=== PATIENT | female | born 1995 | race Caucasian/White ===

== ENCOUNTER 2020-03-10 19:40 | Emergency (ER) | payer SELFPAY ==
[~2020-03-10] VITALS: Ht 172.7 cm; Wt 54.4 kg
[2020-03-10 19:51] VITALS: BP 110/80
--- NOTE | 2020-03-10 19:51 | NUR ---
ED Nurse Note: PT walked in to ED for C/O pain and discomfort to her lung and feeling very tired. pt reports feeling pain when she breathe in since 2 days ago.
--- NOTE | 2020-03-10 19:59 | NUR ---
ED Nurse Note: ERMD at bedside assessing pt at this time.
--- NOTE | 2020-03-10 20:03 | NUR ---
ED Nurse Note: x ray being performed at bedside.
--- NOTE | 2020-03-10 20:05 | Emergency Room Report ---
History of Present Illness General Chief Complaint: Chest Pain Source: Patient Present Illness HPI Disclaimer: Please note that this report is being documented using [employer] technology. This can lead to erroneous entry secondary to incorrect interpretation by the dictating instrument. HPI: 25-year-old female presents for evaluation of "lung pain." Patient states she feels a discomfort in the lower ribs when taking a deep inhalation or bending and twisting motion. She denies any midsternal chest pain or pain radiating. She reports mild shortness of breath because she feels she cannot take a deep breath. Denies fever, chills, sore throat, nasal congestion, abdominal pain, GERD-like symptoms. Tested negative for COVID-19 10 days ago. Attended a dinner alliance party 2 days ago where she smoked cigarettes and electronic cigarettes. She typically does not use tobacco products. No known sick contacts at the dinner. 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 EOMI. Chest wall: No tenderness, no crepitus, no deformity. Cardiovascular: RRR. S1 and S2 normal. No murmur appreciated Resp: Normal work of breathing. No cough, wheezing or crackles appreciated Skin: Intact. No abrasions, laceration or rash over the exposed skin MSK: Normal tone and bulk. Moving all extremities. No obvious deformity. Neuro: Awake and alert. Mentating appropriately. Medical Decision Making Diagnostic Impression: Primary Impression: Pleuritis Additional Impressions: Suspected 2019 novel coronavirus infection Chest pain ER Course Is a 25-year-old female presenting for evaluation of chest discomfort. Differential includes was not limited to ACS, GERD, pneumonitis, pleurisy, pneumonia, pneumothorax to name a few. She arrives stable vital signs, saturating 98% on room air is in no respiratory distress. EKG nonischemic otherwise unremarkable showing normal sinus rhythm without other findings. Chest x-ray shows no infiltrate, no effusions, no pneumothorax and otherwise within normal limits. The patient is well-appearing. May be pleurisy secondary to electronic cigarette use, recent tobacco use or suspect COVID-19 infection given her recent close proximity. Advised for outpatient COVID-19 testing and to quarantine until those results are finalized. Will steroid prednisone, albuterol inhaler and Motrin. Instructed to return with new or worsening symptoms and to follow-up with PMD. She understands and agrees with the treatment plan. EKG Diagnostic Results EKG Time: 20:05 Rate: normal Rhythm: NSR ST Segments: no acute changes Other Impression Sinus rhythm, normal axis, normal intervals, no ST segment changes. Rhythm Strip Diag. Results Rhythm Strip Time: 20:05 EP Interpretation: yes Rate: 60s Rhythm: NSR, no PVC's, no ectopy Chest X-Ray Diagnostic Results Chest X-Ray Diagnostic Results : Chest X-Ray Ordered: Yes # of Views/Limited/Complete: 1 View Indication: Chest Pain EP Interpretation: Yes Interpretation: no consolidation, no effusion, no pneumothorax, no acute cardiopulmonary disease Impression: No acute disease Electronically Signed by: Electronically signed by Dr. Filiberto Scott Last Vital Signs Date Time Temp Pulse Resp B/P (MAP) Pulse Ox O2 Delivery O2 Flow Rate FiO2 03/10/20 19:51 98.2 86 17 110/80 98 Room Air Disposition: HOME, SELF-CARE Condition: Stable Scripts Prednisone* (PREDNISONE*) 20 Mg Tablet 40 MG ORAL DAILY for 5 Days, #10 TAB Prov: Filiberto Scott MD 03/10/20 Albuterol Sulfate (VENTOLIN HFA) 18 Gm Hfa.aer.ad 1 PUFF INH EVERY 6 HOURS, #18 GM 0 Refills Prov: Filiberto Scott MD 03/10/20 Ibuprofen* (MOTRIN*) 600 Mg Tablet 600 MG ORAL Q6H PRN for For Pain, #30 TAB 0 Refills Prov: Filiberto Scott MD 03/10/20 Filiberto Scott MD Mar 10, 2020 20:05
[2020-03-10] MEDS ORDERED: PREDNISONE20 MG ORAL (20:15)
[2020-03-10] MEDS ORDERED: VENTOLIN HFA18 GM INH (20:15)
[2020-03-10] MEDS ORDERED: IBUPROFEN600 M1 ORAL (20:15)
--- NOTE | 2020-03-10 20:19 | NUR ---
ER DISCHARGE NOTE: Patient is cleared to be discharged per ERMD, pt is aox4, on room air, with stable vital signs. pt was given dc and prescription instructions, pt was able to verbalize understanding, pt id band removed without complications. pt is able to ambulate with steady gait. pt took all belongings.
--- NOTE | 2020-03-11 10:53 | Diagnostic Imaging Report ---
Procedure: XRAY Chest 1v Reason for study: Chest pain. Comparison films: None. FINDINGS: A single one view chest is obtained. Vascularity is normal. The lung damico are clear bilaterally. Cardiac and mediastinal silhouette are within normal limits. CP angles are sharp. The bony thorax appear unremarkable. IMPRESSION: NO ACUTE CARDIOPULMONARY DISEASE.
== END 2020-03-10 20:30 | disposition home or self-care (01) ==
LOC: EMR 20:25
DX: R09.1 Pleurisy (principal); R07.9 Chest pain, unspecified
CPT/HCPCS: 71045; 93005; 99283